=== PATIENT | female | born 1980 | race Two or more races ===

== ENCOUNTER 2018-02-01 10:02 | Outpatient (CLI) | payer OTHER | END 2018-02-01 10:18 | disposition home or self-care (01) | LOC: SONOGRAMA 10:02 | DX: N83.292 Other ovarian cyst, left side (principal); N83.291 Other ovarian cyst, right side; N84.0 Polyp of corpus uteri; E55.9 Vitamin D deficiency, unspecified; N60.11 Diffuse cystic mastopathy of right breast; N60.12 Diffuse cystic mastopathy of left breast; R87.610 Atypical squamous cells of undetermined significance on cytologic smear of cervix (ASC-US); R87.810 Cervical high risk human papillomavirus (HPV) DNA test positive; R06.9 Unspecified abnormalities of breathing; N87.0 Mild cervical dysplasia; E66.3 Overweight; N92.0 Excessive and frequent menstruation with regular cycle; N83.209 Unspecified ovarian cyst, unspecified side; N83.9 Noninflammatory disorder of ovary, fallopian tube and broad ligament, unspecified ==